=== PATIENT | male | born 1940 | race Caucasian/White ===

== ENCOUNTER 2018-01-10 14:36 | Outpatient (CLI) | payer MEDICARE ==
--- NOTE | 2018-01-10 16:01 | XRAY Report ---
Procedure Date: 01/10/2018 Accession Number: [id number] / [id number] Procedure: XRS - Shoulder 3 View LT CPT Code: FULL RESULT: EXAM: Shoulder 3 View LT DATE: 01/10/2018 3:25 PM CLINICAL HISTORY: L SHOULDER PX SUBSEQUENT TO TRAUMA COMPARISON: None. TECHNIQUE: 3 views. FINDINGS: Bones: There are minimally displaced distal clavicle and acromial fractures present. Joints: Moderate osteoarthritis of the glenohumeral joint. No dislocation. Soft tissues: The visualized hemithorax is unremarkable. No soft tissue swelling. IMPRESSION: Minimally displaced distal clavicle and acromial fractures. RADIA
== END 2018-01-10 14:37 | disposition home or self-care (01) ==
LOC: DI.S 14:36
PROVIDERS: ATTEND Naturopath
DX: M25.512 Pain in left shoulder (principal); S42.032A Displaced fracture of lateral end of left clavicle, initial encounter for closed fracture; S42.122A Displaced fracture of acromial process, left shoulder, initial encounter for closed fracture; M19.012 Primary osteoarthritis, left shoulder

== ENCOUNTER 2020-06-23 16:29 | Emergency (ER) | payer MEDICARE ==
[2020-06-23] MEDS ORDERED: SODIUM CHLORIDE 0.9% 1,000 ML IV STA (16:57)
--- NOTE | 2020-06-23 16:59 | ED Physician Documentation ---
PD HPI CHEST PAIN - Stated complaint Stated Complaint: UNABLE TO WALK, WEAK, DIARRHEA,SOA - Chief complaint Chief Complaint: Abd Pain - History obtained from History obtained from: Patient - Additional information Additional information: 80-year-old gentleman with history of coronary disease, he has a few stents in place from november be 11 years ago. Had in-stent restenosis and was on Plavix until about 7 years ago. Now takes baby aspirin. Has a history of colonic polyps. 2 nights ago around 9 PM he felt the urge to have a bowel movement. He went to the bathroom and had a large bloody bowel movement mixed with stool. Subsequently that night had a couple of more similar bowel movements although tapering off and the next morning, yesterday morning, had another 1. Since then he has had mild angina similar to prior angina. He has not had a bowel movement since yesterday 9 AM. Does not feel like eating and has not had any oral intake for about 48 hours. Denies fever. No current abdominal pain. Is having a lot of weakness and general dizziness. Review of Systems Ten Systems: 10 systems reviewed and negative Constitutional: reports: Fatigue, Sweats Cardiac: reports: Chest pain / pressure. denies: Palpitations, Pedal edema, Calf pain Respiratory: denies: Dyspnea, Cough PD PAST MEDICAL HISTORY - Present Medications Home Medications: Ambulatory Orders Medication Instructions Recorded Confirmed Aspirin Chewable [St Caio 1 tab PO DAILY 06/23/20 06/23/20 Aspirin] - Allergies Allergies/Adverse Reactions: Allergies Allergy/AdvReac Type Severity Reaction Status Date / Time No Known Drug Allergies Allergy Verified 06/23/20 16:39 PD ED PE NORMAL - Vitals Vital signs reviewed: Yes - General General: Alert and oriented X 3, No acute distress - HEENT HEENT: PERRL, EOMI - Neck Neck: Supple, no meningeal sign, No bony TTP - Cardiac Cardiac: RRR, No murmur - Respiratory Respiratory: No respiratory distress, Clear bilaterally - Abdomen Abdomen: Normal bowel sounds, Soft, Non tender - Back Back: No CVA TTP, No spinal TTP - Derm Derm: Normal color, Warm and dry - Extremities Extremities: No edema, No calf tenderness / cord - Neuro Neuro: Alert and oriented X 3, Normal speech Results - Vitals Vitals: Vital Signs - 24 hr 06/23/20 16:35 Temperature 36.3 C L Heart Rate 85 Respiratory 20 Rate Blood Pressure 148/74 H O2 Saturation 100 Oxygen O2 Source Room air - EKG (time done) 1711 Rate: Rate (enter#) (80) Rhythm: NSR (w pc) [place]: Normal Intervals: Normal [place], RBBB, Other (LAFB) Ischemia: Normal ST segments Computer interpretation: Agree with computer 1820 Rate: Rate (enter#) (102) Rhythm: Sinus tachycardia [place]: Normal Intervals: Normal [place] Ischemia: ST elevation c/w ischemia (AVR), ST depression (V3-V6) Computer interpretation: Agree with computer - Labs Labs: Laboratory Tests 06/23/20 06/23/20 06/23/20 17:39 17:39 17:39 WBC 9.7 RBC 2.49 L Hgb 5.5 L* Hct 19.8 L* MCV 79.5 L MCH 22.1 L MCHC 27.8 L RDW 21.3 H Plt Count 284 MPV 11.8 H Neut # (Auto) 8.0 H Lymph # (Auto) 0.9 L [place] # (Auto) 0.6 Eos # (Auto) 0.0 Baso # (Auto) 0.1 Absolute Nucleated RBC 0.05 Nucleated RBC % 0.5 Manual Slide Review Indicated Platelet Estimate NORMAL (130-450,000) Platelet Morphology NORMAL APPEARANCE RBC Morph Micro Appear 1+ BASO STIPPLING PT 13.9 H INR 1.3 H Sodium 138 Potassium 4.1 Chloride 105 Carbon Dioxide 23 Anion Gap 10.0 BUN 19 Creatinine 0.9 Estimated GFR (MDRD) 82 L Glucose 130 H Calcium 8.2 L Total Bilirubin 1.4 H AST 17 ALT 10 Alkaline Phosphatase 67 Troponin I High Sens Total Protein 6.0 L Albumin 3.4 Globulin 2.6 Albumin/Globulin Ratio 1.3 Lipase 21 L Blood Type Antibody Screen Crossmatch IS Only 06/23/20 06/23/20 17:39 17:39 WBC RBC Hgb Hct MCV MCH MCHC RDW Plt Count MPV Neut # (Auto) Lymph # (Auto) [place] # (Auto) Eos # (Auto) Baso # (Auto) Absolute Nucleated RBC Nucleated RBC % Manual Slide Review Platelet Estimate Platelet Morphology RBC Morph Micro Appear PT INR Sodium Potassium Chloride Carbon Dioxide Anion Gap BUN Creatinine Estimated GFR (MDRD) Glucose Calcium Total Bilirubin AST ALT Alkaline Phosphatase Troponin I High Sens 197.5 H* Total Protein Albumin Globulin Albumin/Globulin Ratio Lipase Blood Type O POSITIVE Antibody Screen NEGATIVE Crossmatch IS Only See Detail PD MEDICAL DECISION MAKING - ED course ED course: 80-year-old gentleman with history of remote coronary disease presents with lower GI bleed. His hemodynamics are normal. His hemoglobin was 5.5 and he has been complaining of angina since 9 AM yesterday. Initial EKG was not to ischemic looking and initial plan was to transfuse him and keep him here for potential lower endoscopy. That said around 6:05 PM he developed increased chest pain and repeat EKG was done at 6:[address] elevation in aVR and new significant ST depression in V3 through V6 compared to the first EKG. STEMI code was called at 6:11 PM. We cannot give him significant blood thinners such as Plavix or heparin because of his underlying bleeding. He will receive aspirin and metoprolol and emergency transfusion of 2 units of blood. Accepted by REGINA Fuentes, at [facility] and [facility] completed. Discussed by phone with daughter. - Critical Care Time(min): 40 Time Includes: Direct patient care, Review records, Reassess patient, Document care, Coordinate care, Medical consult, Family consult for tx dec Data interpretation: Labs, Pulse ox Procedures included in critical care time: Peripheral IV Procedures excluded from critical care time: EKG Departure - Departure Disposition: 02 Transfer Acute Care Hosp Clinical Impression: Lower GI bleed STEMI (ST elevation myocardial infarction) Qualifiers: Involved coronary artery: unspecified coronary artery Qualified Code(s): I21.3 - ST elevation (STEMI) myocardial infarction of unspecified site Anemia Qualifiers: Anemia type: unspecified type Qualified Code(s): D64.9 - Anemia, unspecified Condition: Critical
--- NOTE | 2020-06-23 17:35 | XRAY Report ---
PROCEDURE: Chest 1 View X-Ray INDICATIONS: Chest Pain TECHNIQUE: One view of the chest was acquired. COMPARISON: FINDINGS: Surgical changes and devices: None. Lungs and pleura: No pleural effusions or pneumothorax. Lungs are clear. Mediastinum: Mediastinal contours appear normal. Heart size is normal. Bones and chest wall: No suspicious bony lesions. Overlying soft tissues appear unremarkable. IMPRESSION: No pneumonia found, no pneumothorax identified. A definite source of chest pain is not seen. Reviewed by: Javon Escobedo MD on 06/23/2020 5:34 PM PST Approved by: Javon Escobedo MD on 06/23/2020 5:34 PM PST Station ID: [id number]
[2020-06-23 17:52] LABS: BASOPHILS # (AUTO) 0.1 10^3/uL (0.0-0.1); BASOPHILS % (AUTO) 1.2 %; LYMPHOCYTES # (AUTO) 0.9 10^3/uL (1.5-3.5); LYMPHOCYTES % (AUTO) 9.4 %; MEAN CORPUSCULAR HEMOGLOBIN 22.1 pg (27.0-31.0); MEAN CORPUSCULAR HGB CONC 27.8 g/dL (32.0-36.0); MEAN CORPUSCULAR VOLUME 79.5 fL (80.0-94.0); MEAN PLATELET VOLUME 11.8 fL (7.4-11.4); MONOCYTES # (AUTO) 0.6 10^3/uL (0.0-1.0); MONOCYTES % (AUTO) 6.3 %; NEUTROPHILS % (AUTO) 82.5 %; PLT - PLATELET COUNT 284 10^3/uL (130-450); RED BLOOD COUNT 2.49 10^6/uL (4.70-6.10); RED CELL DISTRIBUTION WIDTH 21.3 % (12.0-15.0); WHITE BLOOD COUNT 9.7 x10^3/uL (4.8-10.8)
[2020-06-23 17:55] LABS: INR 1.3 (0.8-1.2); PT - PROTHROMBIN TIME 13.9 secs (9.9-12.6)
[2020-06-23 18:00] LABS: ALBUMIN 3.4 g/dL (3.2-5.5); ALBUMIN/GLOBULIN RATIO 1.3 (1.0-2.2); BILIRUBIN,TOTAL 1.4 mg/dL (0.2-1.0); CALCIUM 8.2 mg/dL (8.5-10.3); CREATININE 0.9 mg/dL (0.6-1.2); HGB - HEMOGLOBIN 5.5 g/dL (14.0-18.0)
[2020-06-23 18:21] LABS: PLATELET ESTIMATE, MANUAL NORMAL (130-450,000) (NORMAL); PLATELET MORPHOLOGY NORMAL APPEARANCE (NORMAL)
[2020-06-23] MEDS ORDERED: ASPIRIN CHEW 81 MG TABLET PO STA (18:28)
[2020-06-23] MEDS ORDERED: METOPROLOL 5 MG/5 ML VIAL IVP ONE (18:36)
[2020-06-23] MEDS ORDERED: METOPROLOL 5 MG/5 ML VIAL IVP STA (19:17)
[2020-06-23 19:22] VITALS: BP 122/60
[2020-06-23 19:41] LABS: C. PNEUMONIAE- RESP PCR PANEL NOT DETECTED
== END 2020-06-23 18:49 | disposition short-term general hospital (02) ==
LOC: ED 16:29
DX: I21.3 ST elevation (STEMI) myocardial infarction of unspecified site (principal); K92.1 Melena; D64.9 Anemia, unspecified; Z20.828 Contact with and (suspected) exposure to other viral communicable diseases; I45.2 Bifascicular block; I49.3 Ventricular premature depolarization; I25.119 Atherosclerotic heart disease of native coronary artery with unspecified angina pectoris; Z95.5 Presence of coronary angioplasty implant and graft; Z79.82 Long term (current) use of aspirin; Z86.010 Personal history of colon polyps
CPT/HCPCS: 36415; 71045; 80053; 83690; 84484; 85025; 85610; 86850; 86900; 86901; 86920; 87631; 93005; 96361; 96374; 99285; 99291; A9270; P9016; 0202U

== ENCOUNTER 2020-06-23 18:57 | Outpatient (CLI) | payer MEDICARE | END 2020-06-23 18:58 | disposition short-term general hospital (02) | LOC: EMS 18:57 | PROVIDERS: ATTEND Surgery | DX: K92.2 Gastrointestinal hemorrhage, unspecified (principal); C18.9 Malignant neoplasm of colon, unspecified | CPT/HCPCS: A0425; A0426 ==

== ENCOUNTER 2020-06-28 15:35 | Emergency (ER) | payer MEDICARE ==
[2020-06-28 16:24] LABS: BASOPHILS # (AUTO) 0.1 10^3/uL (0.0-0.1); BASOPHILS % (AUTO) 0.5 %; EOSINOPHILS % (AUTO) 0.1 %; HGB - HEMOGLOBIN 8.7 g/dL (14.0-18.0); LYMPHOCYTES # (AUTO) 0.8 10^3/uL (1.5-3.5); LYMPHOCYTES % (AUTO) 6.9 %; MEAN CORPUSCULAR HEMOGLOBIN 25.3 pg (27.0-31.0); MEAN CORPUSCULAR HGB CONC 29.8 g/dL (32.0-36.0); MEAN CORPUSCULAR VOLUME 84.9 fL (80.0-94.0); MEAN PLATELET VOLUME 11.5 fL (7.4-11.4); MONOCYTES # (AUTO) 0.7 10^3/uL (0.0-1.0); MONOCYTES % (AUTO) 6.3 %; NEUTROPHILS # (AUTO) 9.3 10^3/uL (1.5-6.6); NEUTROPHILS % (AUTO) 85.7 %; PLT - PLATELET COUNT 285 10^3/uL (130-450); RED BLOOD COUNT 3.44 10^6/uL (4.70-6.10); RED CELL DISTRIBUTION WIDTH 20.7 % (12.0-15.0); WHITE BLOOD COUNT 10.9 x10^3/uL (4.8-10.8)
[2020-06-28 16:37] LABS: ALBUMIN 3.4 g/dL (3.2-5.5); ALBUMIN/GLOBULIN RATIO 1.4 (1.0-2.2); ALKALINE PHOSPHATASE 59 IU/L (42-121); ALT ALANINE AMINOTRANSFERASE < 10 IU/L (10-60); AST ASPARTATE AMINOTRANSFERASE 20 IU/L (10-42); BILIRUBIN,TOTAL 1.7 mg/dL (0.2-1.0); BUN - BLOOD UREA NITROGEN 15 mg/dL (6-20); CALCIUM 8.4 mg/dL (8.5-10.3); CARBON DIOXIDE - CO2 24 mmol/L (21-32); CHLORIDE 102 mmol/L (101-111); CREATININE 0.9 mg/dL (0.6-1.2); GLUCOSE 119 mg/dL (70-100); LIPASE 27 U/L (22-51); SODIUM 135 mmol/L (135-145); TOTAL PROTEIN 5.8 g/dL (6.7-8.2)
[2020-06-28 16:38] LABS: INR 1.3 (0.8-1.2); PT - PROTHROMBIN TIME 13.8 secs (9.9-12.6)
--- NOTE | 2020-06-28 16:50 | ED Physician Documentation ---
History of Present Illness - Stated complaint Stated Complaint: BLOOD IN STOOL, DIZZINESS - Chief complaint Chief Complaint: General - History obtained from History obtained from: Patient, Other (records) - Additonal information Additional information: 80-year-old male presents to the emergency department with chief complaint of rectal bleeding. This gentleman initially presented to [facility] ER 06/23/2020 with a chief complaint of rectal bleeding. Initially he had a hemoglobin of 5.5. However he also began to develop chest pain and was found to have a STEMI. He was ultimately transferred to [facility] that evening. While at [facility] he did undergo cardiovascular intervention in which 2 stents were placed. He is currently on Plavix and aspirin. 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 Because he has coronary stents in place, no surgery can be completed on the colon until the Plavix and aspirin have been stopped for at least 1 week. In total he received 5 units of blood This gentleman was discharged from [facility] yesterday and this morning he began having bright red blood per rectum. He endorses feeling dizzy with ambulation. He denies chest pain or shortness of breath no fainting. PMH: Hypertension, coronary artery disease, colorectal cancer new diagnosis Meds: Plavix 75 mg daily, aspirin 81 mg daily, Lipitor, lisinopril Social: Former smoker quit 3 months ago. Rare alcohol. Review of Systems Eyes: reports: Reviewed and negative Ears: reports: Reviewed and negative Nose: reports: Reviewed and negative Throat: reports: Reviewed and negative Cardiac: denies: Chest pain / pressure, Palpitations Respiratory: denies: Dyspnea, Cough GI: reports: Bloody / black stool. denies: Abdominal Pain : reports: Reviewed and negative Skin: reports: Reviewed and negative Musculoskeletal: reports: Reviewed and negative PD PAST MEDICAL HISTORY - Past Medical History GI: Hemorrhoids - Past Surgical History Past Surgical History: Yes Cardiovascular: Coronary stent - Present Medications Home Medications: Ambulatory Orders Medication Instructions Recorded Confirmed Aspirin Chewable [St Caio 81 tab PO DAILY 06/23/20 06/28/20 Aspirin] Atorvastatin Calcium 40 mg PO DAILY 06/28/20 06/28/20 Clopidogrel [Plavix] 75 mg PO DAILY 06/28/20 06/28/20 Lisinopril [Zestril] 2.5 mg PO DAILY 06/28/20 06/28/20 - Allergies Allergies/Adverse Reactions: Allergies Allergy/AdvReac Type Severity Reaction Status Date / Time No Known Drug Allergies Allergy Verified 06/28/20 15:58 - Social History Does the pt smoke?: No Smoking Status: Never smoker Does the pt drink ETOH?: No Does the pt have substance abuse?: No PD ED PE EXPANDED - General General: Alert, No acute distress, Well developed/nourished - Neck Neck: Supple w/out meningeal sx, No tenderness - Cardiac Cardiac: Regular Rate, Murmur Present, Radial strong equal, Pedal strong equal, Cap refill < 2 sec - Respiratory Respiratory: Clear to ausultation jocelyn. No: Distress, Labored - Abdomen Abdomen: Normal Bowel sounds. No: Tender to palpation - Rectal Rectal: Other (Ric hematochezia) - Back Back: Normal exam. No: Soft tissue tenderness - GCS Eye Opening: Spontaneous Motor: Obeys Commands Verbal: Oriented Total: 15 Results - Vitals Vitals: Vital Signs - 24 hr 06/28/20 06/28/20 15:45 17:24 Temperature 36.9 C Heart Rate 76 67 Respiratory 18 18 Rate Blood Pressure 123/74 102/62 O2 Saturation 99 99 Oxygen O2 Source Room air - EKG (time done) 1621 Rate: Rate (enter#) (72) Rhythm: Other (PVC) [place]: Normal Intervals: RBBB, Other (LAFB) QRS: Normal Ischemia: Q waves Compare to prior EKG: Changed from prior EKG Computer interpretation: Agree with computer - Labs Labs: Laboratory Tests 06/28/20 06/28/20 06/28/20 16:14 16:14 16:14 WBC 10.9 H RBC 3.44 L Hgb 8.7 L Hct 29.2 L MCV 84.9 MCH 25.3 L MCHC 29.8 L RDW 20.7 H Plt Count 285 MPV 11.5 H Neut # (Auto) 9.3 H Lymph # (Auto) 0.8 L [place] # (Auto) 0.7 Eos # (Auto) 0.0 Baso # (Auto) 0.1 Absolute Nucleated RBC 0.02 Nucleated RBC % 0.2 Manual Slide Review Indicated Platelet Estimate NORMAL (130-450,000) Platelet Morphology NORMAL APPEARANCE RBC Morph Micro Appear 2+ HYPOCHROMASIA PT 13.8 H INR 1.3 H Sodium 135 Potassium 4.1 Chloride 102 Carbon Dioxide 24 Anion Gap 9.0 BUN 15 Creatinine 0.9 Estimated GFR (MDRD) 82 L Glucose 119 H Calcium 8.4 L Total Bilirubin 1.7 H AST 20 ALT < 10 L Alkaline Phosphatase 59 Troponin I High Sens Total Protein 5.8 L Albumin 3.4 Globulin 2.4 Albumin/Globulin Ratio 1.4 Lipase 27 Urine Color Urine Clarity Urine pH Ur Specific [place] Urine Protein Urine Glucose (UA) Urine Ketones Urine Occult Blood Urine Nitrite Urine Bilirubin Urine Urobilinogen Ur Leukocyte Esterase Urine RBC Urine WBC Ur Squamous Epith Cells Urine Bacteria Ur Microscopic Review Urine Culture Comments Blood Type Antibody Screen 06/28/20 06/28/20 06/28/20 16:14 16:14 16:57 WBC RBC Hgb Hct MCV MCH MCHC RDW Plt Count MPV Neut # (Auto) Lymph # (Auto) [place] # (Auto) Eos # (Auto) Baso # (Auto) Absolute Nucleated RBC Nucleated RBC % Manual Slide Review Platelet Estimate Platelet Morphology RBC Morph Micro Appear PT INR Sodium Potassium Chloride Carbon Dioxide Anion Gap BUN Creatinine Estimated GFR (MDRD) Glucose Calcium Total Bilirubin AST ALT Alkaline Phosphatase Troponin I High Sens 132.7 H* Total Protein Albumin Globulin Albumin/Globulin Ratio Lipase Urine Color DARK YELLOW Urine Clarity CLOUDY Urine pH 5.5 Ur Specific [place] 1.025 Urine Protein TRACE Urine Glucose (UA) NEGATIVE Urine Ketones NEGATIVE Urine Occult Blood MODERATE H Urine Nitrite NEGATIVE Urine Bilirubin NEGATIVE Urine Urobilinogen 0.2 (NORMAL) Ur Leukocyte Esterase TRACE H Urine RBC 6-10 H Urine WBC 6-10 H Ur Squamous Epith Cells MANY Squamous H Urine Bacteria Moderate H Ur Microscopic Review INDICATED Urine Culture Comments NOT INDICATED Blood Type O POSITIVE Antibody Screen NEGATIVE PD MEDICAL DECISION MAKING - ED course Complexity details: reviewed results, re-evaluated patient, considered differential, d/w patient ED course: 80-year-old male presents to the emergency department for evaluation of rectal bleeding. This is in the setting of a recent diagnosis of colon adenocarcinoma. Unfortunately he recently underwent stenting of his LAD and he is on Plavix and aspirin. This was placed at a recent hospitalization in [facility]. He was discharged yesterday. Due to the Plavix and aspirin GI was unable to complete the recommended surgery or treatment for this colon mass. Screening labs evaluated here. Hemoglobin 8.9. Renal function preserved. Do note modest troponin rise. This likely reflects recent NSTEMI and stenting and troponin leak His EKG is essentially unchanged from recent. Patient is currently on Plavix and aspirin. Considering the GI bleed would not recommend heparin at this time. 1710: [facility] does not have the appropriate GI or cardiovascular services to manage this gentleman. I have spoken to both can with Dr. Brower policy and planning manager at [facility]. He agrees to consult on the patient if transferred. 1730: I have spoken with the hospitalist Dr. Jalloh who is agreed to accept the patient for further evaluation of lower GI bleeding In the setting of recent NSTEMI/stent placement. Pt has remained hemodynamically stable here in the ED. he will be transported non the less via ALS Departure - Departure Disposition: 02 Transfer Acute Care Hosp Clinical Impression: Adenocarcinoma, Recent ST elevation myocardial infarction (STEMI), History of coronary angioplasty with insertion of stent, Elevated troponin GI bleed Qualifiers: GI bleed type/associated pathology: unspecified gastrointestinal hemorrhage type Qualified Code(s): K92.2 - Gastrointestinal hemorrhage, unspecified Anemia Qualifiers: Anemia type: unspecified type Qualified Code(s): D64.9 - Anemia, unspecified
[2020-06-28 16:58] LABS: PLATELET ESTIMATE, MANUAL NORMAL (130-450,000) (NORMAL); PLATELET MORPHOLOGY NORMAL APPEARANCE (NORMAL)
[2020-06-28 17:22] LABS: BILIRUBIN,URINE NEGATIVE (NEGATIVE); GLUCOSE, URINE (UA) NEGATIVE (NEGATIVE); KETONES,URINE (UA) NEGATIVE (NEGATIVE); LEUKOCYTE ESTERASE, URINE TRACE (NEGATIVE); NITRITE,URINE NEGATIVE (NEGATIVE); OCCULT BLOOD,URINE MODERATE (NEGATIVE); PH,URINE 5.5 PH (5.0-7.5); PROTEIN,URINE TRACE mg/dL (NEGATIVE); UROBILINOGEN,URINE 0.2 (NORMAL) E.U./dL (NORMAL)
[2020-06-28 17:28] LABS: CLARITY,URINE CLOUDY (CLEAR)
[2020-06-28 17:40] LABS: BACTERIA,URINE Moderate /HPF (None Seen); SQUAMOUS EPITHELIAL CELL,UR MANY Squamous (<= Few)
[2020-06-28 18:20] LABS: C. PNEUMONIAE- RESP PCR PANEL NOT DETECTED
[2020-06-28 20:11] VITALS: BP 110/80
== END 2020-06-28 18:53 | disposition short-term general hospital (02) ==
LOC: ED 15:35
DX: K92.1 Melena (principal); D64.9 Anemia, unspecified; C18.9 Malignant neoplasm of colon, unspecified; I21.3 ST elevation (STEMI) myocardial infarction of unspecified site; I25.10 Atherosclerotic heart disease of native coronary artery without angina pectoris; Z95.5 Presence of coronary angioplasty implant and graft; I49.3 Ventricular premature depolarization; I45.2 Bifascicular block; I10 Essential (primary) hypertension; Z79.02 Long term (current) use of antithrombotics/antiplatelets; Z79.82 Long term (current) use of aspirin; Z87.891 Personal history of nicotine dependence; Z20.828 Contact with and (suspected) exposure to other viral communicable diseases
CPT/HCPCS: 0202U; 36415; 80053; 81001; 81003; 83690; 84484; 85025; 85610; 86850; 86900; 86901; 87086; 93005; 99284; 99285

== ENCOUNTER 2020-06-28 18:55 | Outpatient (CLI) | payer MEDICARE | END 2020-06-28 18:56 | disposition short-term general hospital (02) | LOC: EMS 18:55 | PROVIDERS: ATTEND Surgery | DX: K92.2 Gastrointestinal hemorrhage, unspecified (principal) | CPT/HCPCS: A0425; A0426 ==

== ENCOUNTER 2021-01-22 20:21 | Outpatient (CLI) | payer MEDICARE, OTHER ==
--- NOTE | 2021-02-02 14:35 | XRAY Report ---
PROCEDURE: Knee 3 View LT INDICATIONS: LEFT KNEE PAIN TECHNIQUE: 3 views of the left knee(s) were acquired. COMPARISON: None. FINDINGS: Bones: There are tricompartmental degenerative changes consistent with osteoarthritis. No fractures or dislocations. No suspicious bony lesions. Soft tissues: No joint effusion. No suspicious soft tissue calcifications. Atherosclerotic calcifi cations are seen. IMPRESSION: Tricompartmental degenerative changes consistent with osteoarthritis. Reviewed by: Danish Bradford on 01/23/2021 10:27 AM TALAT Approved by: Danish Bradford on 01/23/2021 10:27 AM PDT Station ID: [id number]
== END 2021-01-22 20:22 | disposition home or self-care (01) ==
LOC: DI 20:21
PROVIDERS: ATTEND Nurse Practitioner Family
DX: M17.12 Unilateral primary osteoarthritis, left knee (principal); N28.89 Other specified disorders of kidney and ureter; R93.422 Abnormal radiologic findings on diagnostic imaging of left kidney; R93.421 Abnormal radiologic findings on diagnostic imaging of right kidney

== ENCOUNTER 2021-01-22 20:22 | Outpatient (CLI) | payer MEDICARE, OTHER ==
--- NOTE | 2021-01-23 09:33 | Ultrasound Report ---
PROCEDURE: Abdomen Complete INDICATIONS: HYPERBILIRUBINEMIA TECHNIQUE: Real-time scanning was performed of the abdominal and retroperitoneal organs, with image documentatio n. COMPARISON: None. FINDINGS: Liver: Liver is enlarged with coarsened echotexture. Gallbladder: L bladder demonstrates sludge. Wall thickness measures 2.1 cm. Biliary ducts: Intrahepatic bile ducts are non-dilated. Extrahepatic bile duct caliber measures 5.5 mm. Normal is 6-7 mm or less in diameter, or 10 mm or less post-cholecystectomy. Pancreas: Visualized portions of the pancreas are sonographically normal. Spleen: Spleen is normal in size and homogeneous in echotexture. Kidneys: Kidneys are normal in size and echotexture. Right kidney measures 12.5 cm long; left kidne y measures 12.7 cm long. No hydronephrosis or nephrolithiasis. There is a focus of decreased echoge nicity appearing solid in the superior right renal pole measuring 2.4 x 2.7 x 2.2 cm. Vascular flow i s noted peripherally. There is a second focus of relative isoechogenicity also noted superiorly measu ring 1.6 x 1.1 0.1 cm. An echogenic focus without posterior shadowing is present inferiorly measuring 1.3 x 0.8 x 1.1. Similar focus is the left measuring approximately 1 cm. Aorta: Visualized aorta is normal in caliber at less than 3 cm. Iliacs: Proximal common iliac arteries are normal in caliber at less than 2.5 cm. IVC: Intrahepatic inferior vena cava is patent. Miscellaneous: No free abdominal fluid. IMPRESSION: 1. At least one if not two solid-appearing masses within the right kidney as described above. Further evaluation with CT with renal protocol is recommended 2. Bilateral foci of increased echogenicity most consistent with nonobstructing calculi. Reviewed by: Kitty De La Cruz MD on 01/23/2021 9:32 AM PDT Approved by: Kitty De La Cruz MD on 01/23/2021 9:32 AM PDT Station ID: [id number]
== END 2021-01-22 20:23 | disposition home or self-care (01) ==
LOC: DI 20:22
PROVIDERS: ATTEND Nurse Practitioner Family
DX: N28.89 Other specified disorders of kidney and ureter (principal); R93.422 Abnormal radiologic findings on diagnostic imaging of left kidney; R93.421 Abnormal radiologic findings on diagnostic imaging of right kidney

== ENCOUNTER 2021-02-05 13:56 | Outpatient (CLI) | payer MEDICARE ==
[2021-02-05 14:23] LABS: CREATININE 0.7 mg/dL (0.6-1.2)
[2021-02-05] MEDS ORDERED: IOPAMIDOL-300 100 ML VIAL ONE ×2 (14:36→14:54)
[2021-02-05] MEDS ORDERED: IOPAMIDOL-300 100 ML VIAL IVP ONE (15:12)
--- NOTE | 2021-02-05 16:26 | CT Report ---
PROCEDURE: ABDOMEN W/WO INDICATIONS: RENAL MASS CONTRAST: IV CONTRAST: Isovue 300 ml: 140 PO CONTRAST: *NO PO CONTRAST TECHNIQUE: Noncontrast 5 mm thick sections acquired from the diaphragms to the symphysis. 5 mm coronal and sagi ttal reformats were then performed. For radiation dose reduction, the following was used: automated exposure control, adjustment of mA and/or kV according to patient size. COMPARISON: Ultrasound abdomen 01/22/2021. FINDINGS: Image quality: Excellent. Lung bases: Lung bases are clear. Heart size is normal. Coronary artery atherosclerotic calcificat ions are present. Adrenal glands: No adrenal nodules. Solid organs: Liver and spleen are normal in size and enhancement. Gallbladder appears normal. Larry iary system is non dilated. Pancreas enhances normally. Multiple bilateral nonobstructing renal calculi measuring up to 18 mm on the right and 6 mm on the le ft. There is no hydronephrosis. A 1.5 x 1.1 cm enhancing partially exophytic mass seen at the lateral interpolar region of the right kidney (image 35 of series 7). Posteriorly at the interpolar region of the right kidney, an enhancing mass measures 1.1 x 1.1 cm (35/7). A 1.8 x 1.6 cm enhancing lesion is seen in the anterior aspect of the right inferior pole (45/7). A 3.2 x 2.7 cm mass at the lateral inferior pole of the right kidney demonstrates internal enhancement (45/7). Focal volume loss and coarse calcifications are seen at the superior pole of the right kidney, likely representing chronic scarring. A 1.5 cm lesion in the posterior right inferior pole does not demonst rate significant contrast enhancement on postcontrast images (43/7), compatible with a benign cyst. A 2 cm nonenhancing exophytic simple cyst is seen at the superior pole of the right kidney. There is focal volume loss with hyperattenuation and coarse calcifications at the interpolar region of the rig ht kidney may represent chronic scarring. Peritoneum and bowel: Unenhanced bowel loops are normal in caliber and wall thickness. A benign int ramural lipoma is seen in the second portion of the duodenum. Status post appendectomy. The cecum is located in the right upper quadrant. No free fluid or air. Nodes and vessels: No retroperitoneal or mesenteric adenopathy by size criteria. Aortobiiliac stent graft is noted. The excluded aneurysm sac of the infrarenal aorta measures approximately 4.0 x 3.4 cm in diameter. Bilateral common iliac artery aneurysms are seen measuring up to 4.4 cm in diameter on the right and 3.3 cm on the left. Miscellaneous: No ventral hernias. Bones: No suspicious bony lesions. No vertebral body compression fractures. Multilevel degenerative changes in the spine. IMPRESSION: 1. Four small enhancing masses are seen within the right kidney as described above. The largest july ures up to 3.2 cm at the inferior pole. These are suspicious for neoplasms such as renal cell carcino ma. 2. Endovascular stent graft is seen of the infrarenal abdominal aorta. The excluded aneurysm sac jasvir sures 4.0 x 3.4 cm. 3. Bilateral common iliac aneurysms, measuring up to 4.4 cm in diameter on the right and 3.3 cm diam eter on the left. Reviewed by: Sunny Hernandez MD on 02/05/2021 4:25 PM PDT Approved by: Sunny Hernandez MD on 02/05/2021 4:25 PM PDT Station ID: [id number]
== END 2021-02-05 13:57 | disposition home or self-care (01) ==
LOC: LAB 13:56
PROVIDERS: ATTEND Nurse Practitioner Family
DX: N28.89 Other specified disorders of kidney and ureter (principal); Z95.828 Presence of other vascular implants and grafts; I71.4 Abdominal aortic aneurysm, without rupture; I72.3 Aneurysm of iliac artery
CPT/HCPCS: 36415; 74170; 82565; Q9967

== ENCOUNTER 2021-12-31 06:57 | Day surgery (SDC) | payer MEDICARE ==
[~2021-12-31 06:57] MED LIST: CYCLOPENTOLATE 1% OPHTH DROPS 2 ML ONE; KETOROLAC 0.45% OPHTH DROPS ONE; PHENYLEPHRINE 2.5% OPHTH 2 ML DROPS ONE; PROPARACAINE 0.5% OPHTH DROPS 15 ML ONE
[2021-12-31] MEDS ORDERED: LACTATED RINGERS 1,000 ML IV ONE ×2 (07:00→08:38)
[2021-12-31] MEDS ORDERED: TRIAMCIN/MOXIFLOX OPHTHALMIC 0.6 ML VIAL IO ONE ×2 (07:15→08:25)
[2021-12-31] MEDS ORDERED: BRIMONIDINE 0.2% OPHTH DROPS 5 ML ONE ×2 (07:16→07:24)
[2021-12-31] MEDS ORDERED: EPINEPHrine 1 MG/ML AMP ONE ×2 (07:16→07:24)
[2021-12-31] MEDS ORDERED: BSS/LIDOCAINE/EPINEPHRINE 1 ML VIAL ONE ×3 (07:16→10:36)
[2021-12-31] MEDS ORDERED: TIMOLOL 0.5% OPHTH DROPS ONE ×2 (07:16→07:24)
--- NOTE | 2021-12-31 08:08 | ANESTHESIA ---
Pre-Anesthesia VS, & Labs - Diagnosis L cataract PhacoIOL - Procedure L PhacoIOL Vital Signs: Temp Pulse Resp BP Pulse Ox 36.3 C L 56 L 16 139/80 H 98 12/31/21 07:07 12/31/21 07:07 12/31/21 07:07 12/31/21 07:07 12/31/21 07:07 Height: 6 ft 6 in Weight (kg): 119 kg Body Mass Index: 30.3 BMI Classification: Obese - NPO >8 hours Home Medications and Allergies Aspirin Chewable [St Caio Aspirin] 81 tab PO DAILY 06/23/20 Atorvastatin Calcium 40 mg PO DAILY 06/28/20 Lisinopril [Zestril] 2.5 mg PO DAILY 06/28/20 Allergies/Adverse Reactions: Allergies Allergy/AdvReac Type Severity Reaction Status Date / Time No Known Drug Allergies Allergy Verified 06/28/20 15:58 Anes History & Medical History - Anesthetic History Anesthesia Complications: reports: No previous complications Family history of Anesthesia Complications: Denies Family history of Malignant Hyperthermia: Denies - Medical History Cardiovascular: reports: None Pulmonary: reports: None Gastrointestinal: reports: Hemorrhoids Smoking Status: Never smoker - Surgical History Cardiothoracic: reports: Coronary stent Exam General: Alert, Oriented x3, Cooperative Dental: WNL Mouth Openin Fingerbreadth Neck Mobility: Normal Mallampati classification: II Thyromental Distance: 4-6 cm Respiratory: Lungs clear Cardiovascular: Regular rate Plan Anesthesia Type: MAC Consent for Procedure(s) Verified and Reviewed: Yes Code Status: Attempt Resuscitation ASA classification: 2-Mild systemic disease Is this case an emergency?: No
[2021-12-31] MEDS ORDERED: EPINEPHrine 1 MG/ML AMP IR ONE (08:25)
[2021-12-31] MEDS ORDERED: BSS/LIDOCAINE/EPINEPHRINE 1 ML SYRINGE IO ONE (08:25)
[2021-12-31] MEDS ORDERED: TIMOLOL 0.5% OPHTH DROPS OPTH ONE (08:25)
[2021-12-31] MEDS ORDERED: PROPARACAINE 0.5% OPHTH DROPS 15 ML EACHEYE ONE (08:25)
[2021-12-31] MEDS ORDERED: BRIMONIDINE 0.2% OPHTH DROPS 5 ML OPTH ONE (08:25)
[2021-12-31] MEDS ORDERED: VANCOMYCIN OPHTH (TOPICAL) 10 MG/ML SYRINGE TOP ONE (08:26)
[2021-12-31] MEDS ORDERED: MIDAZOLAM 2 MG/2 ML VIAL ONE (08:29)
--- NOTE | 2021-12-31 08:51 | OPERATIVE REPORT ---
Operative Report - Other Other Information/Narrative: Date of Surgery: 12/31/21 Preop Dx: Visually significant cataract left eye. This was the first cataract surgery. Postop Dx: Same Procedure: Phacoemulsification with posterior chamber intraocular lens implant left eye Surgeon: Dr. Ricardo Fuentes Anesthesia: Monitored anesthesia care Complications: None Operative Indications: This is a 81-year-old M with progressive vision loss in the left eye due to 3+ nuclear sclerotic and 1+ posterior subcapsular cataract. Best corrected visual acuity was 20/40 with glare to 20/70 vision in the left eye. Indications for surgery were: - Overall decrease in vision - Difficulty seeing street signs - Difficulty driving in low light or at night - Difficulty driving at night because of headlights from other vehicles - Difficulty with glare or bright lights in any situation The patient was consented at length concerning the risks and benefits of cataract surgery after which the patient expressed a desire to proceed with surg luis m. Operative Procedure: The patient was taken into OR#3 and placed under monitored anesthesia care. A surgical time-out was conducted confirming correct patient, correct procedure, and correct surgical site. The patient was given topical anesthesia and then prepped and draped in the usual sterile fashion. The eye was entered at the 6 and 3 oclock positions. Intracameral Shugarcaine was injected into the anterior chamber followed by a dispersive viscoelastic. A continuous-tear curvilinear capsulorhexis was performed. The nucleus was hydrodissected and phacoemulsified. The cortex was evacuated using automated infusion and aspiration. A cohesive viscoelastic was injected into the capsular bag and a 18.5 diopter intraocular lens was inserted into the bag. Infusion and aspiration were used to evacuate the viscoelastic materials from the eye. The wounds were hydrated and the eye inflated to physiologic pressure using balanced salt solution. Approximately 0.25ml of a mixture of triamcinolone and moxifloxacin was injected trans-sclerally into the vitreous in the inferotemporal quadrant using a 30 gauge cannula. An additional 0.55ml of a mixture of triamcinolone and moxifloxacin was injected subconjunctivally in the superior quadrant for infection and inflammation prophylaxis. Wound integrity was checked with Weck-Geetha sponges. The patient was taken from the operating room in good condition and given post-op instructions.
[2021-12-31 08:55] VITALS: BP 118/67
--- NOTE | 2021-12-31 14:41 | ANESTHESIA POST OP EVALUATION ---
Anesthesia Post Eval - Post Anesthesia Eval Vitals: Last Vital Signs Temp 37.3 C 12/31/21 08:38 Pulse 48 L 12/31/21 08:54 Resp 24 12/31/21 08:54 BP 118/67 12/31/21 08:54 Pulse Ox 97 12/31/21 08:54 CV Function Including HR & BP: Stable Pain Control: Satisfactory Nausea & Vomiting: Negative Mental Status: Baseline Respiratory Status: Airway Patent Hydration Status: Satisfactory Anesthesia Complications: None
== END 2021-12-31 06:58 | disposition home or self-care (01) ==
LOC: SDS 06:57
PROVIDERS: ATTEND Ophthalmology
DX: H25.812 Combined forms of age-related cataract, left eye (principal); I10 Essential (primary) hypertension; E66.9 Obesity, unspecified; Z68.30 Body mass index [BMI] 30.0-30.9, adult; Z72.0 Tobacco use
CPT/HCPCS: 66984; A9270; J3490; J7120

== ENCOUNTER 2022-04-22 09:23 | Day surgery (SDC) | payer MEDICARE ==
[~2022-04-22 09:23] MED LIST changes: +BRIMONIDINE 0.2% OPHTH DROPS 5 ML ONE; +BSS/LIDOCAINE/EPINEPHRINE 1 ML VIAL ONE; +EPINEPHrine 1 MG/ML AMP ONE; +TIMOLOL 0.5% OPHTH DROPS ONE; +TRIAMCIN/MOXIFLOX OPHTHALMIC 0.6 ML VIAL IO ONE; +VANCOMYCIN OPHTH (TOPICAL) 10 MG/ML SYRINGE ONE
[2022-04-22] MEDS ORDERED: LACTATED RINGERS 1,000 ML IV ONE ×2 (09:41→10:58)
--- NOTE | 2022-04-22 10:17 | ANESTHESIA ---
Pre-Anesthesia VS, & Labs - Diagnosis R senile combined cataract - Procedure Extraction R cataract wIOL Vital Signs: Temp Pulse Resp BP Pulse Ox O2 Flow Rate 36.2 C L 79 16 143/73 H 100 0 04/22/22 09:44 04/22/22 09:44 04/22/22 09:44 04/22/22 09:44 04/22/22 09:44 04/22/22 09:44 Height: 6 ft 6 in Weight (kg): 117 kg Body Mass Index: 29.7 BMI Classification: Overweight - NPO >8 hours Home Medications and Allergies Aspirin Chewable [St Caio Aspirin] 81 tab PO DAILY 06/23/20 Atorvastatin Calcium 40 mg PO DAILY 06/28/20 Lisinopril [Zestril] 2.5 mg PO DAILY 06/28/20 Allergies/Adverse Reactions: Allergies Allergy/AdvReac Type Severity Reaction Status Date / Time No Known Drug Allergies Allergy Verified 06/28/20 15:58 Anes History & Medical History - Anesthetic History Anesthesia Complications: reports: No previous complications Family history of Anesthesia Complications: Denies Family history of Malignant Hyperthermia: Denies - Medical History Cardiovascular: reports: None, Atrial flutter, Atrial fibrillation Pulmonary: reports: None Gastrointestinal: reports: Hemorrhoids Smoking Status: Never smoker - Surgical History General: reports: Appendectomy, Colonoscopy Cardiothoracic: reports: Coronary stent Exam General: Alert, Oriented x3, Cooperative Dental: WNL Mouth Openin Fingerbreadth Neck Mobility: Normal Mallampati classification: II Thyromental Distance: 4-6 cm Respiratory: Lungs clear, Normal breath sounds, No respiratory distress Cardiovascular: Regular rate Neurological: Normal speech Mental/Cognitive Status: Alert/Oriented X3, Normal for patient Cognitive Status: Within normal limits Plan Anesthesia Type: MAC Consent for Procedure(s) Verified and Reviewed: Yes Code Status: Attempt Resuscitation ASA classification: 3-Severe systemic disease Is this case an emergency?: No
[2022-04-22] MEDS ORDERED: MIDAZOLAM 2 MG/2 ML VIAL ONE (10:22)
[2022-04-22] MEDS ORDERED: BRIMONIDINE 0.2% OPHTH DROPS 5 ML OPTH ONE (10:51)
[2022-04-22] MEDS ORDERED: TRIAMCIN/MOXIFLOX OPHTHALMIC 0.6 ML VIAL IO ONE (10:52)
[2022-04-22] MEDS ORDERED: BSS/LIDOCAINE/EPINEPHRINE 1 ML SYRINGE IO ONE (10:52)
[2022-04-22] MEDS ORDERED: EPINEPHrine 1 MG/ML AMP IR ONE (10:52)
[2022-04-22] MEDS ORDERED: TIMOLOL 0.5% OPHTH DROPS OPTH ONE (10:52)
[2022-04-22] MEDS ORDERED: PROPARACAINE 0.5% OPHTH DROPS 15 ML EACHEYE ONE (10:53)
[2022-04-22] MEDS ORDERED: VANCOMYCIN OPHTH (TOPICAL) 10 MG/ML SYRINGE TOP ONE (10:53)
--- NOTE | 2022-04-22 11:05 | OPERATIVE REPORT ---
Operative Report - Procedure Note Pathology: Date of Surgery: 04/22/22 Preop Dx: Visually significant cataract right eye. Cataract surgery was performed in the left eye on . Postop Dx: Same Procedure: Phacoemulsification with posterior chamber intraocular lens implant right eye Surgeon: Dr. Ricardo Fuentes Anesthesia: Monitored anesthesia care Complications: None Operative Indications: This is a 81-year-old M with progressive vision loss in the right eye due to 3+ nuclear sclerotic and 1+ posterior subcapsular cataract. Best corrected visual acuity was 20/25 with glare to 20/40 vision in the right eye. Indications for surgery were: - Overall decrease in vision - Difficulty seeing words on a computer screen - Difficulty reading - Difficulty seeing words, closed captions, or game scores on TV - Difficulty seeing street signs - Difficulty driving in low light or at night - Difficulty driving at night because of headlights from other vehicles - Difficulty with glare or bright lights in any situation The patient was consented at length concerning the risks and benefits of cataract surgery after which the patient expressed a desire to proceed with surgery. Operative Procedure: The patient was taken into OR#3 and placed under monitored anesthesia care. A surgical time-out was conducted confirming correct patient, correct procedure, and correct surgical site. The patient was given topical anesthesia and then prepped and draped in the usual sterile fashion. The eye was entered at the 6 and 3 oclock positions. Intracameral Shugarcaine was injected into the anterior chamber followed by a dispersive viscoelastic. A continuous-tear curvilinear capsulorhexis was performed. The nucleus was hydr odissected and phacoemulsified. The cortex was evacuated using automated infusion and aspiration. A cohesive viscoelastic was injected into the capsular bag and a 16.5 diopter intraocular lens was inserted into the bag. Infusion and aspiration were used to evacuate the viscoelastic materials from the eye. The wounds were hydrated and the eye inflated to physiologic pressure using balanced salt solution. Approximately 0.25ml of a mixture of triamcinolone and moxifloxacin was injected trans-sclerally into the vitreous in the inferotemporal quadrant using a 30 gauge cannula. An additional 0.55ml of a mixture of triamcinolone and moxifloxacin was injected subconjunctivally in the superior quadrant for infection and inflammation prophylaxis. Wound integrity was checked with Weck-Geetha sponges. The patient was taken from the operating room in good condition and given post-op instructions.
[2022-04-22 11:15] VITALS: BP 116/59
--- NOTE | 2022-04-22 11:19 | ANESTHESIA POST OP EVALUATION ---
Anesthesia Post Eval - Post Anesthesia Eval Vitals: Last Vital Signs Temp 36.2 C L 04/22/22 11:00 Pulse 52 L 04/22/22 11:13 Resp 20 04/22/22 11:13 BP 116/59 L 04/22/22 11:13 Pulse Ox 100 04/22/22 11:13 O2 Flow Rate 0 04/22/22 09:44 CV Function Including HR & BP: Stable Pain Control: Satisfactory Nausea & Vomiting: Negative Mental Status: Baseline Respiratory Status: Airway Patent Hydration Status: Satisfactory Anesthesia Complications: None
== END 2022-04-22 09:24 | disposition home or self-care (01) ==
LOC: SDS 09:23
PROVIDERS: ATTEND Ophthalmology
DX: H25.811 Combined forms of age-related cataract, right eye (principal); Z98.42 Cataract extraction status, left eye; Z87.891 Personal history of nicotine dependence
CPT/HCPCS: 66984; A9270; J3490; J7120

== ENCOUNTER 2022-06-23 16:55 | Outpatient (CLI) | payer MEDICARE | END 2022-06-23 16:56 | disposition short-term general hospital (02) | LOC: EMS 16:55 | DX: R10.84 Generalized abdominal pain (principal); R07.9 Chest pain, unspecified; K59.00 Constipation, unspecified; I48.91 Unspecified atrial fibrillation | CPT/HCPCS: A0425; A0429 ==